=== PATIENT | female | born 1950 | race Caucasian/White ===

== ENCOUNTER → 2023-11-06 06:51 | Outpatient (REF) | payer MEDICARE, SELFPAY | LOC: SDSPAT 06:51 | PROVIDERS: ATTENDING PHYSICIAN Surgery; FAMILY PHYSICIAN Nurse Practitioner Adult Health | DX: K80.20 Calculus of gallbladder without cholecystitis without obstruction (principal) | CPT/HCPCS: 36415; 93005 ==

== ENCOUNTER 2023-11-10 06:28 | Day surgery (SDC) | payer MEDICARE, SELFPAY ==
[2023-11-10] VITALS (11 sets, daily range): BP systolic 131–151; BP diastolic 71–89
[2023-11-10] MEDS: NORMOSOL-R 1000 IV (10:53)
[2023-11-10] MEDS: TYLENOL 1000 MG PO (10:54)
--- NOTE | 2023-11-10 11:33 | W.SUR.PREOP ---
Pre-Operative Surgical Note
-
I have examined this patient prior to the performance of the scheduled procedure.
The patient's condition is unchanged from the time of the current History and
Physical and the patient is able to undergo the scheduled procedure.
--- NOTE | 2023-11-10 13:10 | W.IMMPOSTOP ---
Addendum entered and electronically signed by Cristian Watson MD 11/13/23 07:50:
#[id number]
Original Note:
Surgical Immed Post Op Note
-
Primary Surgeon: Shirley
Assisting Surgeon: Devan PUENTE
Pre-op Diagnosis: Symptomatic cholelithiasis
Post-op Diagnosis: Symptomatic cholelithiasis
Procedure Performed: Laparoscopic cholecystectomy intraoperative cholangiogram
Anesthesia Type: GETA +0.25% Marcaine
Specimen / Cultures: Gallbladder
Estimated Blood Loss: 6 mL
Complications: None immediate
Operative Findings: Physiologically distended gallbladder. No adhesions. Gallbladder full of gravel/small stones. Intraoperative cholangiogram normal. Cystic duct controlled with hemoclips. Cystic artery controlled with hemoclips.
Cholecystectomy completed without entry into the gallbladder. Gallbladder extracted at epigastric 12 mm trocar site without dilation of the fascia.
[2023-11-10] MEDS: ROXICODONE 5 MG PO (14:49)
== END 2023-11-10 15:30 | disposition home or self-care (01) ==
LOC: SDS 06:28
PROVIDERS: ATTENDING PHYSICIAN Surgery
DX: K80.10 Calculus of gallbladder with chronic cholecystitis without obstruction (principal); R59.0 Localized enlarged lymph nodes
CPT/HCPCS: 47563; 88304; 74300; 76000

== ENCOUNTER → 2024-07-19 10:16 | Outpatient (REF) | payer MEDICARE, SELFPAY | LOC: HWRAD 10:16 | PROVIDERS: ATTENDING PHYSICIAN Internal Medicine Critical Care Medicine; FAMILY PHYSICIAN Nurse Practitioner Adult Health | DX: R06.09 Other forms of dyspnea (principal) | CPT/HCPCS: 71046 ==

== ENCOUNTER 2025-02-03 12:50 | Emergency (ER) | payer MEDICARE, SELFPAY ==
[2025-02-03] VITALS (7 sets, daily range): BP systolic 135–161; BP diastolic 80–97; BMI 29.8
--- NOTE | 2025-02-03 13:01 | ED.MUSCINJ ---
HPI-Injury
<Angel Ramos PA-C - Last Filed: 02/03/25 16:04>
General
Chief Complaint: Fall
Source: patient
Exam Limitations: none
Time Seen by Provider: 02/03/25 12:55
History of Present Illness-Injury
Initial Injury comments:
74-year-old female presents after slipping getting out of the shower and complains of right hip pain and deformity. She has a history of right hip replacement. She also complains of left ring finger pain and deformity. She is not anticoagulated.
No headache. No neck pain. No other complaints
Past History
<NARGIS Garvin Last Filed: 02/03/25 16:04>
Past History
ED Past Medical History: Other
ED Past Surgical History: Other
Social History
Tobacco: Non-smoker
Personal:
Living: with family
Phy Exam
<NARGIS Garvin Last Filed: 02/03/25 16:04>
Physical Exam
Physical Exam:
General: Well-appearing female no acute respiratory distress
HEENT: Normocephalic atraumatic
Heart: Regular rate and rhythm
Lungs: Clear no wheeze
Musculoskeletal exam: The pain and deformity to left ring finger at the PIP joint. There is also shortened and internally rotated right lower extremity.
Spine is nontender
Ext: no cyanosis or edeam
Injury Course
<NARGIS Garvin Last Filed: 02/03/25 16:04>
Orders/Labs/Results
Orders:
Orders
02/03/25 13:00
CR Hand - Left Min 3 Views Urgent
Reason For Exam: pain to ring finger
CR Pelvis - 1 Or 2 Views Urgent
Reason For Exam: deformity
02/03/25 13:01
HYDROmorphone [Dilaudid] 0.5 mg IV NOW STA
02/03/25 13:55
CR Femur - Right Min 2 Vw Urgent
02/03/25 14:11
diazePAM [Valium Injection] 5 mg IV NOW STA
02/03/25 15:22
HYDROmorphone [Dilaudid] 0.5 mg IV NOW STA
02/03/25 15:58
Ondansetron Injectable [Zofran] 4 mg .ROUTE .STK-MED ONE
<Mohan Kraft DO - Last Filed: 02/03/25 14:20>
Orders/Labs/Results
Orders:
Orders
02/03/25 13:00
CR Hand - Left Min 3 Views Urgent
Reason For Exam: pain to ring finger
CR Pelvis - 1 Or 2 Views Urgent
Reason For Exam: deformity
02/03/25 13:01
HYDROmorphone [Dilaudid] 0.5 mg IV NOW STA
02/03/25 13:55
CR Femur - Right Min 2 Vw Urgent
02/03/25 14:11
diazePAM [Valium Injection] 5 mg IV NOW STA
02/03/25 15:22
HYDROmorphone [Dilaudid] 0.5 mg IV NOW STA
02/03/25 15:58
Ondansetron Injectable [Zofran] 4 mg .ROUTE .STK-MED ONE
<Angel Ramos PA-C - Last Filed: 02/03/25 16:04>
MDM/Problems Addressed
Differential Diagnosis Includes:
Patient with pain and deformity to the right leg and left ring finger dislocation versus fracture. Also evaluate for finger dislocation versus fracture
Pain medicine ordered. X-rays pending
<Angel Ramos PA-C - Last Filed: 02/03/25 16:04>
*Pulse Oximetry
SaO2: 98
Oxygen Mode of Delivery: Room air
Patient hypoxic: no
*Critical Care Note
Total Time (30-74mins, 75-104mins- exclusive of procedures): Not Applicable
<Angel Ramos PA-C - Last Filed: 02/03/25 16:04>
Update Note
Update Note:
X-rays demonstrate proximal to mid femoral shaft fracture with significant shortening and angulation. Discussed findings with orthopedics. Patient wishes to stick with [facility] for her leg. Her knee and her hip are done by a [facility] surgeon,
Bradley. Spoke with orthopedics on-call from [facility] here. They suggested if the patient wants to stick with the [facility] surgeon that they should be transferred to [facility] as there may be issues interoperatively that he is not
comfortable fixing. Discussed with orthopedics at [facility] who suggested an emergency room and emergency room transfer. Waiting to hear back from the emergency room at [facility]
Discussed with the emergency room at [facility] who recommend I speak with the trauma department as she is a fall with femur fracture. Spoke with attending from [facility] trauma, Dr. Duncan who accepted the patient as a trauma transfer. Arranges were
made for transportation.
Orthopedics at [facility] was sure to say that her surgery may not happen for another couple days. I relayed this information to the patient she was aware that she may be waiting.
ED Attending Note
<Angel Ramos PA-C - Last Filed: 02/03/25 16:04>
-
Portions of this chart may have been created with voice recognition software.� Occasional wrong word or��sound alike� substitutions may have occurred due to the inherent limitations of voice recognition software.
<Mohan Kraft DO - Last Filed: 02/03/25 14:20>
ED Attending Note
Patient seen and examined by attending physician: Yes
I performed the substantive portion of visit, reviewed & personally made and approve the management plan that is documented in note by myself or ANUSHA.: Yes
ED Attending Note:
Agree with Christiano's note
Patient fell getting out of the shower. She has right hip pain. Right leg is shortened and internally rotated. She does have a hip replacement on the side.
General: Awake, Alert, Oriented X3. No acute distress.
Vitals: unremarkable
Head: Atraumatic
Eyes: Pupils equal, EOMI
Throat: Airway intact, no exudates. Mallampati score of 1
Neck: Trachea midline
Lungs: Clear and equal b/l
Heart: Regular rate, no murmurs
Neuro: Grossly nonfocal
Skin: Warm, dry, no rash
Extremities: pulses equal b/l, no edema. Right leg shortened, internally rotated, pain with any movement.
Suspect prosthetic hip dislocation. X-ray. If so we will proceed with sedation and repeat attempts at reduction
1419: Imaging shows a mid-shaft femur fx. Discuss with [facility] (pt is an active pt of [facility]).
Discharge Plan
Departure
Patient Disposition: Acute Care Hospital
Date of Disposition: 02/03/25
Time of Disposition: 16:03
Discharge Problem:
Femoral shaft fracture
Prescriptions:
No Action
metoprolol succinate 50 mg Tablet Extended Release 24 Hr
50 mg PO BID
valsartan 80 mg Tablet
80 mg PO DAILY
aspirin 81 mg Tablet,Delayed Release (Dr/Ec)
81 mg PO DAILY
vitamin A-vitamin C-vit E-min Tablet
1 tab PO BID
rosuvastatin 20 mg Tablet
20 mg PO Q48H
ibuprofen 200 mg tablet
400 - 600 mg PO Q6HPRN PRN (Reason: moderate pain) Qty: 1 0RF
polyethylene glycol 3350 [Miralax] 17 gram/dose powder
4 g PO DAILY PRN (Reason: Constipation) Qty: 119 0RF
Rx Instructions:
start a laxative such as MIRALAX on day 2 after surgery if no bowel movement yet as long as no nausea/vomiting and passing gas
oxycodone 5 mg tablet
5 mg PO Q4HPRN PRN (Reason: breakthrough/severe pain) Qty: 14 0RF
acetaminophen [Tylenol Extra Strength] 500 mg tablet
1,000 mg PO Q6HPRN PRN (Reason: mild pain) Qty: 1 0RF
Referrals:
Cynthia Rao [employer] [Family Provider]
Hospital Transfer
Other hospital: [facility]
I certify that the patient requires transfer: Yes
Discussed case with accepting physician: Dr. Duncan
Reason for transfer: higher level of care and specialties available
Interventions
Interventions:
*Risk Screen - Suicide Last Done: 02/03/25 12:54
*General Assessment Last Done: 02/03/25 12:55
*Neglect/Abuse Screening Last Done: 02/03/25 12:54
*ED- Fall Risk Assessment Last Done: 02/03/25 12:55
*ED COVID-19 Vaccine History Last Done: 02/03/25 12:55
ED-Musculoskeletal Assessment Last Done: 02/03/25 13:02
ED- Neurological Assessment Last Done: 02/03/25 13:02
ED-Skin Assessment Last Done: 02/03/25 13:02
Discharge Date and Time
Print Language: MOZAMBICAN
[2025-02-03] MEDS: DILAUDID 0.5 MG IV ×2 (13:34→15:44)
[2025-02-03] MEDS: VALIUM INJECTION 5 MG IV (14:15)
[2025-02-03] MEDS: ZOFRAN 4 MG IV (16:03)
== END 2025-02-03 17:23 | disposition short-term general hospital (02) ==
LOC: EMR 12:50
PROVIDERS: EMERGENCY PHYSICIAN Emergency Medicine; FAMILY PHYSICIAN Nurse Practitioner Adult Health
DX: S72.301A Unspecified fracture of shaft of right femur, initial encounter for closed fracture (principal); W18.2XXA Fall in (into) shower or empty bathtub, initial encounter; Z96.641 Presence of right artificial hip joint
CPT/HCPCS: 99285; 96374; 96375; 96376; 72170; 73130; 73552